=== PATIENT | female | born 1935 | race Caucasian/White ===

== ENCOUNTER 2019-09-03 22:58 | Emergency (ER) | payer MEDICARE ==
[~2019-09-03] VITALS: Ht 160 cm; Wt 64.0 kg
[~2019-09-03 22:58] MED LIST: COLACE100 MG PO; CYCLOBENZAPRINE5 MG PO; LISINOPRIL20 MG PO; ONDANSETRON HCL4 M2 PO; TRAMADOL 50 MG50 MG PO; TYLENOL EXTRA500 MG PO
[2019-09-03] MEDS ORDERED: AMOX TR-K CLV1 EAC3 PO (23:18)
[2019-09-03] MEDS ORDERED: AZITHROMYCIN500 MG PO (23:22)
[2019-09-03] MEDS ORDERED: CARVEDILOL12.5 MG PO (23:22)
[2019-09-03] MEDS ORDERED: NORVASC 2.5 MG2.5 M1 PO (23:24)
[2019-09-03] MEDS ORDERED: CHLORTHALIDONE25 MG PO (23:25)
[2019-09-03] MEDS ORDERED: FUROSEMIDE 20 M20 MG PO (23:25)
[2019-09-03 23:26] LABS: HEMATOCRIT 28.6 % (37.0-47.0); HEMOGLOBIN 9.9 gm/dL (12.0-15.0); MCH 30.4 pg (26.0-34.0); MCHC 34.5 g/dL (28.0-37.0); MPV 9.2 fl. (7.2-11.1); NUCLEATED RBCS 0 /100WBC; PLATELET COUNT* 224 thou/uL (150-400); RBC 3.25 mil/uL (4.20-5.00); RDW-CV 14.8 % (10.5-14.5); WBC 7.8 thou/uL (4.0-11.0)
[2019-09-03] MEDS ORDERED: CILOSTAZOL 100100 MG PO (23:26)
[2019-09-03 23:37] LABS: INR 1.1; PROTIME 11.4 Seconds (9.20-11.50)
[2019-09-03 23:52] LABS: CREATININE 2.1 mg/dL (0.6-1.3); POTASSIUM 3.8 mmol/L (3.5-5.1)
[2019-09-03 23:53] LABS: ALBUMIN 3.3 g/dL (3.4-5.0); CALCIUM 8.6 mg/dL (8.5-10.1); MAGNESIUM 2.2 mg/dL (1.8-2.4); TOTAL BILIRUBIN 0.5 mg/dL (<0.1-1.0); TOTAL PROTEIN 7.6 g/dL (6.4-8.2)
[2019-09-04 01:01] LABS: ABSOLUTE EOSINOPHILS 0.2 thou/uL (0.0-0.7); ABSOLUTE LYMPHOCYTES 1.4 thou/uL (0.8-5.3); ABSOLUTE MONOCYTES 0.6 thou/uL (0.0-1.2); ABSOLUTE NEUTROPHILS 5.6 thou/uL (1.6-8.1); METAMYELOCYTES 1 %
[2019-09-04 01:02] LABS: PLATELET ESTIMATE ADEQUATE
[2019-09-04 01:03] LABS: POLYCHROMASIA 1+
[2019-09-04] MEDS ORDERED: BACTRIM DS TAB1 EACH PO (01:13)
[2019-09-04 02:25] VITALS: BP 153/69
--- NOTE | 2019-09-05 16:09 | EKG ---
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 09/05/19 1607 02 Alfredo Conn MD, [facility] /EPI
== END 2019-09-04 02:25 | disposition short-term general hospital (02) ==
LOC: M.ERS 22:58
PROVIDERS: Emergency Medicine
DX: J18.9 Pneumonia, unspecified organism (principal); I11.0 Hypertensive heart disease with heart failure; I50.9 Heart failure, unspecified; Z90.49 Acquired absence of other specified parts of digestive tract

== ENCOUNTER 2019-10-20 06:10 | Emergency (ER) | payer MEDICARE ==
[~2019-10-20] VITALS: Ht 160 cm; Wt 45.4 kg
[~2019-10-20 06:10] MED LIST changes: +AMOX TR-K CLV1 EAC3 PO; +AZITHROMYCIN500 MG PO; +BACTRIM DS TAB1 EACH PO; +CARVEDILOL12.5 MG PO; +CHLORTHALIDONE25 MG PO; +CILOSTAZOL 100100 MG PO; +FUROSEMIDE 20 M20 MG PO; +NORVASC 2.5 MG2.5 M1 PO
[2019-10-20 06:53] LABS: ABSOLUTE BASOPHILS 0.1 thou/uL (0.0-0.2); ABSOLUTE EOSINOPHILS 0.7 thou/uL (0.0-0.7); ABSOLUTE LYMPHOCYTES 1.5 thou/uL (0.8-5.3); ABSOLUTE NEUTROPHILS 4.2 thou/uL (1.6-8.1); BASOPHILS 1.2 %; EOSINOPHILS 9.4 %; HEMATOCRIT 37.6 % (37.0-47.0); LYMPHOCYTES 20.2 %; MCH 29.8 pg (26.0-34.0); MCHC 34.6 g/dL (28.0-37.0); MCV 86.1 fL (80.0-100.0); MONOCYTES 13.9 %; MPV 8.7 fl. (7.2-11.1); NUCLEATED RBCS 0 /100WBC; PLATELET COUNT* 191 thou/uL (150-400); POLYS 55.3 %; RBC 4.37 mil/uL (4.20-5.00); RDW-CV 16.6 % (10.5-14.5); WBC 7.5 thou/uL (4.0-11.0)
[2019-10-20 07:02] LABS: CALCIUM 8.8 mg/dL (8.5-10.1); CREATININE 1.8 mg/dL (0.6-1.3)
[2019-10-20 07:14] LABS: INR 1.1; PROTIME 11.4 Seconds (9.20-11.50)
[2019-10-20 07:15] LABS: ALBUMIN 3.6 g/dL (3.4-5.0); MAGNESIUM 2.5 mg/dL (1.8-2.4); TOTAL BILIRUBIN 0.5 mg/dL (<0.1-1.0); TOTAL PROTEIN 8.6 g/dL (6.4-8.2)
[2019-10-20 07:19] LABS: POTASSIUM 2.9 mmol/L (3.5-5.1)
[2019-10-20] MEDS ORDERED: MULTI VITAMIN1 EACH PO (10:50)
[2019-10-20] MEDS ORDERED: VITAMIN D310 MC2 PO (10:51)
[2019-10-20] MEDS ORDERED: CALCIUM500 MG PO (10:51)
[2019-10-20 10:52] LABS: URINE BILIRUBIN NEGATIVE (Negative); URINE BLOOD NEGATIVE (Negative); URINE CLARITY CLEAR; URINE COLOR YELLOW; URINE GLUCOSE-RANDOM NEGATIVE (Negative); URINE KETONES NEGATIVE (Negative); URINE LEUKOCYTES-REFLEX NEGATIVE (Negative); URINE NITRITE-REFLEX NEGATIVE (Negative); URINE PROTEIN NEGATIVE (Negative); URINE SPECIFIC GRAVITY <= 1.005 (1.005-1.030); URINE UROBILINOGEN 0.2 E.U./dl (0.2-1.0)
[2019-10-20 11:45] VITALS: BP 167/75
--- NOTE | 2019-10-20 17:06 | EKG ---
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 : 1935 Requested By: Brittany Swanson Order Number: [id number] MD: Cody Arceo Measurements Intervals [place] Rate: 62 P: 63 MT: 160 QRS: 22 QRSD: 87 T: 31 QT: 591 QTc: 601 Interpretive Statements Sinus rhythm Probable anteroseptal infarct, recent Prolonged QT interval Baseline wander in lead(s) V5 Compared to ECG 09/03/2019 23:03:07 Prolonged QT interval now present Myocardial infarct finding still present Electronically Signed On 10-20-2019 17:05:14 CDT by Cody Arceo [email or web address] <ELECTRONICALLY SIGNED> By: Cody Arceo MD, [facility] 10/20/19 1705 0642 [id number] Cody Arceo MD, [facility] /EPI
== END 2019-10-20 11:45 | disposition home or self-care (01) ==
LOC: M.ERS 06:10
PROVIDERS: Emergency Medicine
DX: R06.00 Dyspnea, unspecified (principal); I11.0 Hypertensive heart disease with heart failure; I50.9 Heart failure, unspecified; M79.89 Other specified soft tissue disorders; Z90.89 Acquired absence of other organs; Z79.899 Other long term (current) drug therapy

== ENCOUNTER 2019-10-22 04:15 | Emergency (ER) | payer MEDICARE ==
[~2019-10-22] VITALS: Ht 160 cm; Wt 47.6 kg
[~2019-10-22 04:15] MED LIST changes: +CALCIUM500 MG PO; +MULTI VITAMIN1 EACH PO; +VITAMIN D310 MC2 PO
[2019-10-22 05:40] LABS: ABSOLUTE EOSINOPHILS 0.5 thou/uL (0.0-0.7); ABSOLUTE LYMPHOCYTES 1.5 thou/uL (0.8-5.3); ABSOLUTE MONOCYTES 1.1 thou/uL (0.0-1.2); ABSOLUTE NEUTROPHILS 4.4 thou/uL (1.6-8.1); BASOPHILS 0.6 %; EOSINOPHILS 6.7 %; HEMATOCRIT 35.5 % (37.0-47.0); HEMOGLOBIN 12.1 gm/dL (12.0-15.0); LYMPHOCYTES 19.7 %; MCH 29.4 pg (26.0-34.0); MCV 86.5 fL (80.0-100.0); MONOCYTES 14.6 %; MPV 8.2 fl. (7.2-11.1); NUCLEATED RBCS 0 /100WBC; PLATELET COUNT* 195 thou/uL (150-400); POLYS 58.4 %; RBC 4.11 mil/uL (4.20-5.00); RDW-CV 16.6 % (10.5-14.5); WBC 7.6 thou/uL (4.0-11.0)
[2019-10-22 05:47] LABS: BE 3.1 mmol/L (-2 to +3); PCO2 36.9 mmHg (35.0-45.0); PO2 100.4 mmHg (75.0-100.0); pH 7.476 (7.340-7.450)
[2019-10-22 05:58] LABS: CALCIUM 8.5 mg/dL (8.5-10.1)
[2019-10-22 06:00] LABS: POTASSIUM 2.9 mmol/L (3.5-5.1)
[2019-10-22 06:02] LABS: ALBUMIN 3.5 g/dL (3.4-5.0); TOTAL BILIRUBIN 0.5 mg/dL (<0.1-1.0); TOTAL PROTEIN 7.9 g/dL (6.4-8.2)
[2019-10-22 07:20] VITALS: BP 168/96
--- NOTE | 2019-10-23 09:38 | EKG ---
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[place] : 1935 Requested By: Daniela Hayward Order Number: [id number] MD: Yariel Espinoza Measurements Intervals [place] Rate: 67 P: 71 CA: 162 QRS: 32 QRSD: 85 T: 122 QT: 422 QTc: 446 Interpretive Statements Sinus rhythm Probable left atrial enlargement Borderline repolarization abnormality Compared to ECG 10/20/2019 06:42:58 Myocardial infarct finding no longer present Prolonged QT interval no longer present Electronically Signed On 10-23-2019 9:37:32 CDT by Yariel Espinoza [email or web address] <ELECTRONICALLY SIGNED> By: Nataliya Espinoza MD, [facility] 10/23/19 0937 9 9 Nataliya Espinoza MD, [facility] /EPI
== END 2019-10-22 07:24 | disposition home or self-care (01) ==
LOC: M.ERS 04:15
PROVIDERS: Personal Emergency Response Attendant
DX: R06.00 Dyspnea, unspecified (principal); I10 Essential (primary) hypertension; Z90.49 Acquired absence of other specified parts of digestive tract

== ENCOUNTER 2020-08-10 12:46 | Emergency (ER) | payer OTHER, MEDICARE ==
[~2020-08-10] VITALS: Ht 160 cm; Wt 67.1 kg
[2020-08-10 13:20] LABS: ABSOLUTE BASOPHILS 0.2 thou/uL (0.0-0.2); ABSOLUTE EOSINOPHILS 0.1 thou/uL (0.0-0.7); ABSOLUTE LYMPHOCYTES 1.7 thou/uL (0.8-5.3); ABSOLUTE MONOCYTES 2.3 thou/uL (0.0-1.2); ABSOLUTE NEUTROPHILS 9.4 thou/uL (1.6-8.1); BASOPHILS 1.2 %; EOSINOPHILS 0.8 %; HEMATOCRIT 36.3 % (37.0-47.0); HEMOGLOBIN 12.2 gm/dL (12.0-15.0); LYMPHOCYTES 12.3 %; MCH 30.5 pg (26.0-34.0); MCHC 33.6 g/dL (28.0-37.0); MCV 90.7 fL (80.0-100.0); MPV 8.3 fl. (7.2-11.1); NUCLEATED RBCS 0 /100WBC; PLATELET COUNT* 195 thou/uL (150-400); POLYS 68.7 %; RBC 4.01 mil/uL (4.20-5.00); RDW-CV 15.3 % (10.5-14.5); WBC 13.7 thou/uL (4.0-11.0)
[2020-08-10 13:28] LABS: CALCIUM 9.4 mg/dL (8.5-10.1); CREATININE 1.8 mg/dL (0.6-1.3); POTASSIUM 3.4 mmol/L (3.5-5.1)
[2020-08-10 13:33] LABS: ALBUMIN 3.3 g/dL (3.4-5.0); TOTAL BILIRUBIN 0.8 mg/dL (<0.1-1.0); TOTAL PROTEIN 8.4 g/dL (6.4-8.2)
[2020-08-10 13:45] LABS: URINE BILIRUBIN NEGATIVE (Negative); URINE BLOOD 1+ (Negative); URINE CLARITY CLEAR; URINE COLOR YELLOW; URINE GLUCOSE-RANDOM NEGATIVE (Negative); URINE KETONES NEGATIVE (Negative); URINE LEUKOCYTES 2+ (Negative); URINE NITRITE NEGATIVE (Negative); URINE PROTEIN NEGATIVE (Negative); URINE UROBILINOGEN 0.2 E.U./dl (0.2-1.0)
[2020-08-10 13:55] LABS: BACTERIA >30 Many /HPF (None Seen); SQUAMOUS 0-3 Few /LPF (0-3); URINE RBC 3-10 Few /HPF (0-2)
[2020-08-10 13:56] LABS: CASTS None Seen /LPF (None Seen); CRYSTALS None Seen /LPF (None Seen); MUCUS 0-3 Light strn/LPF (None Seen)
[2020-08-10] MEDS ORDERED: KEFLEX500 M1 PO (14:34)
[2020-08-10 15:11] VITALS: BP 140/77
== END 2020-08-10 15:11 | disposition home or self-care (01) ==
LOC: M.ERS 12:46
PROVIDERS: Emergency Medicine
DX: M48.56XA Collapsed vertebra, not elsewhere classified, lumbar region, initial encounter for fracture (principal); M48.54XA Collapsed vertebra, not elsewhere classified, thoracic region, initial encounter for fracture; I12.9 Hypertensive chronic kidney disease with stage 1 through stage 4 chronic kidney disease, or unspecified chronic kidney disease; N18.9 Chronic kidney disease, unspecified; M48.061 Spinal stenosis, lumbar region without neurogenic claudication; N39.0 Urinary tract infection, site not specified; Z90.49 Acquired absence of other specified parts of digestive tract; Z98.890 Other specified postprocedural states